=== PATIENT | male | born 1995 | race Hispanic/Latino ===

== ENCOUNTER 2017-06-14 08:10 | Emergency (ER) | payer SELFPAY ==
[2017-06-14 08:16] VITALS: BP 129/69; PULSE 108; TEMP 98; O2SAT 99
[2017-06-14 08:17] VITALS: BMI 18.3
--- NOTE | 2017-06-14 08:43 | ED PDOC ---
Lower Extremity Pain/Injury Time Seen by Provider: 06/14/17 08:20 Chief Complaint (Nursing): Lower Extremity Problem/Injury Chief Complaint (Provider): Lower extremity problem History Per: Patient History/Exam Limitations: no limitations Onset/Duration Of Symptoms: Days (x1) Current Symptoms Are (Timing): Still Present Severity: Mild Pain Scale Rating Of: 2 Additional Complaint(s): Pool Amaya is a 21 year old male, with no past medical history, who presents to the emergency department complaining of left ankle pain. Patient states he walked here from [place]. He denies any recent injuries but he did injured his ankle years ago. Patient states pain is worst with movement and ambulation. No further medical complaints. PMD: None provided. Past Medical History Reviewed: Historical Data, Nursing Documentation, Vital Signs Vital Signs: Last Vital Signs Temp 98 F 06/14/17 08:15 Pulse 108 H 06/14/17 08:15 Resp BP 129/69 06/14/17 08:15 Pulse Ox 99 06/14/17 08:15 - Family History Family History: States: Unknown Family Hx - Allergies Allergies/Adverse Reactions: Allergies Allergy/AdvReac Type Severity Reaction Status Date / Time No Known Allergies Allergy Verified 06/14/17 08:22 Review of Systems ROS Statement: Except As Marked, All Systems Reviewed And Found Negative Musculoskeletal: Positive for: Foot Pain (left ankle). Negative for: Other ( injuries) Physical Exam - Reviewed Nursing Documentation Reviewed: Yes Vital Signs Reviewed: Yes - Physical Exam Appears: Positive for: Well, Non-toxic, No Acute Distress Head Exam: Positive for: ATRAUMATIC, NORMAL INSPECTION, NORMOCEPHALIC Skin: Positive for: Normal Color, Warm, Dry Eye Exam: Positive for: EOMI, Normal appearance, PERRL Neck: Positive for: Normal, Painless ROM, Supple Respiratory: Negative for: Respiratory Distress Extremity: Positive for: Tenderness (left medial ankle), Pedal Edema (and erythema but no induration) Neurologic/Psych: Positive for: Alert, Oriented - ECG O2 Sat by Pulse Oximetry: 99 (RA) Pulse Ox Interpretation: Normal Medical Decision Making Medical Decision Making: Initial Impression: left ankle pain Initial Plan: --Motrin Tab 600 mg PO --Ankle left 3 views routine [RAD] --Foot left 3 views routine [RAD] --reevaluation 1035 Ankle x-ray FINDINGS: BONES: No evidence of acute displaced fracture nor dislocation. Talar dome appears intact. Remaining osseous structures unremarkable. JOINTS: No significant osteoarthritis. Ankle mortise maintained. Talar dome intact SOFT TISSUES: There is mild soft tissue swelling over the medial malleolus with infiltration of the proximal medial subcutaneous tissues OTHER FINDINGS: None. IMPRESSION: No evidence of acute displaced fracture nor dislocation. Mild medial soft tissue swelling as above. . If symptoms persist or occult fracture suspected clinically consider repeat radiographs in 7-10 days as most fractures should become radiographically evident in this timeframe. . 1036 Foot X-ray FINDINGS: BONES: Normal. No fracture. JOINTS: Normal. SOFT TISSUES: Mild medial soft tissue swelling is less well seen on this study as compared to dedicated ankle radiographs. OTHER FINDINGS: None. IMPRESSION: No evidence of acute displaced fracture nor dislocation. If symptoms persist or occult fracture suspected clinically consider repeat radiographs in 5-10 days as most fractures should become radiographically evident in this timeframe. 1143 -Spoke with podiatry Scribe Attestation: Documented by Osman George, acting as a scribe for Merna Sheehan MD Provider Scribe Attestation: All medical record entries made by the Scribe were at my direction and personally dictated by me. I have reviewed the chart and agree that the record accurately reflects my personal performance of the history, physical exam, medical decision making, and the department course for this patient. I have also personally directed, reviewed, and agree with the discharge instructions and disposition. Disposition - Disposition Forms: [employer] (Italian)
--- NOTE | 2017-06-14 10:36 | RAD ---
PROCEDURE: Left Ankle Radiographs. HISTORY: Left medial ankle pain COMPARISON: Correlation made with concurrent radiographs of the left foot FINDINGS: BONES: No evidence of acute displaced fracture nor dislocation. Talar dome appears intact. Remaining osseous structures unremarkable. JOINTS: No significant osteoarthritis. Ankle mortise maintained. Talar dome intact SOFT TISSUES: There is mild soft tissue swelling over the medial malleolus with infiltration of the proximal medial subcutaneous tissues OTHER FINDINGS: None. IMPRESSION: No evidence of acute displaced fracture nor dislocation. Mild medial soft tissue swelling as above. . If symptoms persist or occult fracture suspected clinically consider repeat radiographs in 7-10 days as most fractures should become radiographically evident in this timeframe. .
--- NOTE | 2017-06-14 10:38 | RAD ---
PROCEDURE: Left Foot Radiographs. HISTORY: L medial ankle pain COMPARISON: Correlation made with concurrent radiographs of the left ankle FINDINGS: BONES: Normal. No fracture. JOINTS: Normal. SOFT TISSUES: Mild medial soft tissue swelling is less well seen on this study as compared to dedicated ankle radiographs. OTHER FINDINGS: None. IMPRESSION: No evidence of acute displaced fracture nor dislocation. If symptoms persist or occult fracture suspected clinically consider repeat radiographs in 5-10 days as most fractures should become radiographically evident in this timeframe.
--- NOTE | 2017-06-14 12:17 | CP.PCM.CON ---
History of Present Illness - History of Present Illness History of Present Illness: 21 y/o male with no significant PMHx seen and evaluated at bedside for left ankle pain. Patient states that he is homeless and is waking down to [place]. Patient states that he left [place] 3 days ago and is now in [place]. Patient states that he rested along the way for the night. Patient denies of any recent F/N/V/C/SOB/CP today. Denies of any other pedal complains at this time. PMHx: Denies PSHx: Chest surgery Allergies: Denies SHx: 1/2 a pack a day smoking daily, denies EtOH and illicit drug usage Review of Systems - Constitutional Constitutional: As Per HPI Past Patient History - Past Social History Smoking Status: Never Smoked - PSYCHIATRIC Hx Substance Use: No Meds Allergies/Adverse Reactions: Allergies Allergy/AdvReac Type Severity Reaction Status Date / Time No Known Allergies Allergy Verified 06/14/17 08:22 Physical Exam - Constitutional Appears: Well, Non-toxic, No Acute Distress - Extremities Exam Extremities exam: Negative for: calf tenderness Additional comments: Bilateral LE exam VASC: DP/PT pulses are palpable 2/4, Cap refill time: < 3 sec to all digits, Temp gradient: warm to cool from proximal to distal, non-pitting edema noted on the medial ankle accompanied with erythema DERM: nails are cut to hygenic length, no Interdigital maceration, no open lesions, no clinical suspicion of active infection NEURO: Protective sensation grossly intact ORTHO: tenderness on palpation superior to the course of Posterior tibialis tendon distal to the medial malleolus, mild tenderness along the PT tendon during dorsiflexion and inversion and eversion, AROM and PROM intact with mild tenderness diffusely at the ankle, MMT: 5/5 in all 4 compartments - Neurological Exam Neurological exam: Alert, Oriented x3 - Psychiatric Exam Psychiatric exam: Normal Affect, Normal Mood Results - Vital Signs Recent Vital Signs: Last Vital Signs Temp 98 F 06/14/17 08:15 Pulse 108 H 06/14/17 08:15 Resp BP 129/69 06/14/17 08:15 Pulse Ox 99 06/14/17 11:44 Assessment & Plan - Assessment and Plan (Free Text) Assessment: 21 y/o male with no significant PMHx seen and evaluated at bedside in ED for posterior tibial tendonitis secondary to excessive use Plan: Patient seen and evaluated Discussed in details with attending Dr. Howell X-rays of the foot/ankle reviewed: - no acute fracture or dislocations appreciated. Suspicious for OCD lesion of the medial talus. Possible stress fracture on the medial ankle which can not be ruled out Pain management/anti-inflammatory as per ED Left ankle cleaned with saline and Ledesma compression dressing applied Patient educated of RICE protocol Patient demonstrated verbal understanding Thank you for podiatry consult and allowing to take part in patient care - Date & Time Date: 06/14/17 Time: 12:25
== END 2017-06-14 12:58 | disposition home or self-care (01) ==
LOC: H.ER 08:10
DX: M76.822 Posterior tibial tendinitis, left leg (principal); F17.210 Nicotine dependence, cigarettes, uncomplicated; Z59.0 Homelessness